=== PATIENT | female | born 1965 | race Caucasian/White ===

== ENCOUNTER 2016-04-09 11:51 | Emergency (ER) | payer OTHER ==
[~2016-04-09] VITALS: Ht 157.5 cm; Wt 59.0 kg
[~2016-04-09 11:51] MED LIST: ABILIFY10 MG PO; ADDERALL XR 2020 MG PO; ADDERALL20 MG PO; ADVAIR HFA120 INHALA IH; ALBUTEROL SULF8.5 GM IH; ALPRAZOLAM1 MG PO; AMBIEN5 MG PO; AMOXICILLIN500 MG PO; AMPHETAMINE SAL20 MG PO; ASACOL HD800 MG PO; ASACOL400 MG PO; ASPIR 8181 M1 PO; ASPIRIN81 M1 PO; ATARAX,VISTARIL50 MG PO; ATIVAN1 MG PO; ATORVASTATIN CA40 MG PO; AUGMENTIN875 MG PO; AZITHROMYCIN250 MG PO; Ambien PO; Aspirin Chewable PO; Aspirin Ec PO; Atarax,Vistaril PO; Atorvastatin Calcium PO; BENZONATATE100 MG PO; BICARSIM80 MG PO; BISACODYL5 MG PO; BUSPAR5 MG PO; CATAPRES0.1 MG PO; CELEXA40 MG PO; CEPHALEXIN500 MG PO; CLARITIN,ALAVAR10 MG PO; CLONAZEPAM0.5 MG PO; CLONAZEPAM1 MG PO; CLONAZEPAM2 MG PO; CLONIDINE HCL0.1 MG PO; CYMBALTA30 MG PO; CYMBALTA60 MG PO; DESYREL 150 MG150 MG PO; DESYREL100 MG PO; DESYREL300 MG PO; DIAZEPAM5 MG PO; DICYCLOMINE HCL20 MG PO; Desyrel PO; ESGIC 50-325-41 EAC1 PO; FEOSOL325 MG PO; FIORICET,ESG1 TABLET PO; FLONASE16 G1 BOTH NARES; Feosol PO; GABAPENTIN300 MG PO; GLUCOPHAGE500 MG PO; HYCODAN SYRUP480 ML PO; HYDROXYZINE HCL50 M1 PO; HYDROXYZINE PAM25 MG PO; HYDROXYZINE PAM50 MG PO; INDOCIN50 MG PO; K-DUR20 MEQ PO; K-Dur PO; KLONOPIN1 MG PO; KLONOPIN2 MG PO; KLOR-CON 1010 ME1 PO; KlonoPIN PO; LAMICTAL100 MG PO; LAMICTAL25 MG PO; LAMOTRIGINE100 MG PO; LEVAQUIN750 MG PO; LIPITOR40 MG PO; LISINOPRIL10 MG PO; LITE COAT ASPI325 M1 PO; LOPERAMIDE2 MG PO; LOPRESSOR100 MG PO; LOPRESSOR25 MG PO; LOPRESSOR50 MG PO; LOW DOSE ASPIRI81 M1 PO; LYRICA100 MG PO; LYRICA50 MG PO; METFORMIN HCL500 MG PO; METHADONE10 MG PO; METHADONE5 MG PO; METOPROLOL SUCC25 MG PO; METOPROLOL TART25 MG PO; METOPROLOL TART50 MG PO; MOBIC7.5 MG PO; Methadone PO; NEURONTIN300 MG PO; NEXIUM40 MG PO; NICODERM CQ1 EAC2 TD; NITROSTAT0.4 MG SL; NORCO 5/3251 TABLET PO; Neurontin PO; PANTOPRAZOLE SO40 MG PO; PERCOCET 10/1 TABLET PO; PERCOCET 5/31 TABLET PO; PERCOCET 7.51 TABLET PO; PHENAZOPYRIDIN100 MG PO; POTASSIUM CHLO10 ME4 PO; PRAVACHOL20 MG PO; PREDNISONE10 MG PO; PREDNISONE20 MG PO; PRINIVIL10 MG PO; PRISTIQ50 MG PO; PROAIR HFA8.5 GM IH; PROMETHAZINE HC25 M1 PO; PROTONIX40 MG PO; PROVENTIL HFA6.7 GM IH; PROZAC10 MG PO; Phenergan PO; Proventil,Ventolin H IH; QUETIAPINE FUM200 MG PO; QUETIAPINE FUM300 MG PO; QUETIAPINE FUMA50 MG PO; SEROQUEL200 MG PO; SEROQUEL300 MG PO; SEROQUEL400 MG PO; SEROQUEL50 MG PO; SERTRALINE HCL100 MG PO; SERTRALINE HCL25 MG PO; SINEQUAN100 MG PO; SPIRIVA RESPIMAT4 GM IH; SPIRIVA1 INHALATI; SPIRIVA1 INHALATI IH; TEGRETOL200 MG PO; TEMAZEPAM15 MG PO; TIZANIDINE HCL2 MG PO; TYLENOL WITH C1 EACH PO; ULTRAM50 MG PO; VALIUM5 MG PO; VENTOLIN HFA18 GM IH; VICODIN 5-3001 EACH PO; XANAX1 MG PO; ZANAFLEX2 M1 PO; ZESTRIL10 MG PO; ZOFRAN ODT4 MG PO; ZOFRAN4 MG PO; ZOLOFT100 MG PO; ZYPREXA10 MG PO
[2016-04-09] MEDS ORDERED: PERCOCET 10/1 TABLET PO (13:08)
[2016-04-09] MEDS ORDERED: LISINOPRIL10 MG PO (13:11)
[2016-04-09] MEDS ORDERED: LYRICA50 MG PO (13:11)
[2016-04-09] MEDS ORDERED: ZOLPIDEM TARTRA10 MG PO (13:12)
[2016-04-09] MEDS ORDERED: TESSALON PERLE100 MG PO (14:36)
[2016-04-09] MEDS ORDERED: MUCUS ER600 MG PO (14:36)
[2016-04-09] MEDS ORDERED: ROBITUSSIN NIG118 ML PO (14:36)
[2016-04-09 14:41] VITALS: BP 182/89
== END 2016-04-09 14:45 | disposition home or self-care (01) ==
LOC: EME 11:51
DX: J20.9 Acute bronchitis, unspecified (principal); G89.29 Other chronic pain; F17.200 Nicotine dependence, unspecified, uncomplicated; E11.9 Type 2 diabetes mellitus without complications; I10 Essential (primary) hypertension
CPT/HCPCS: 99281; 99284

== ENCOUNTER 2016-08-07 18:24 | Emergency (ER) | payer OTHER ==
[~2016-08-07] VITALS: Ht 157.5 cm; Wt 64.6 kg
[~2016-08-07 18:24] MED LIST changes: +MUCUS ER600 MG PO; +ROBITUSSIN NIG118 ML PO; +TESSALON PERLE100 MG PO; +ZOLPIDEM TARTRA10 MG PO
[2016-08-07 19:26] LABS: HEMATOCRIT 35.9 % (36.0-46.0); MCHC 31.8 G/DL (30.0-36.0); MCV 84.9 FL (83-99); MEAN PLAT.VOLUME 10.8 uM^3 (9.5-12.4); PLATELET COUNT 248 K/uL (156-360); RBC DIS.WIDTH-CV 14.6 % (11.8-14.6); RBC DIS.WIDTH-SD 44.6 % (39-53); RED BLOOD COUNT 4.23 M/uL (3.80-5.20); WHITE BLOOD COUNT 7.8 K/uL (4.1-10.2)
[2016-08-07 19:35] LABS: CHLORIDE 107 mEq/L (99-109); POTASSIUM 4.3 mEq/L (3.7-5.4); SODIUM 141 mEq/L (136-147)
[2016-08-07 19:37] LABS: GLUCOSE 74 mg/dL (70-99)
[2016-08-07 19:38] LABS: ANION GAP 8 MEQ/L (2-14)
[2016-08-07 19:39] LABS: TOTAL BILIRUBIN 0.1 mg/dL (0.0-1.0)
[2016-08-07 19:40] LABS: SERUM ETHYL ALCOHOL < 10 mg/dL
[2016-08-07 19:41] LABS: ALKALINE PHOSPHATASE 105 IU/L (3-129); GFR ESTIMATE (CALCULATED) > 59 mL/min/
[2016-08-07 19:42] LABS: UREA NITROGEN (BUN) 7 mg/dL (9-23)
[2016-08-07 19:57] LABS: ADD MIUA? NO; BILIRUBIN NEGATIVE; BLOOD NEGATIVE; COLOR YELLOW ((YELLOW)); GLUCOSE (STRIP) NEGATIVE; KETONES NEGATIVE; LEUKOCYTES NEGATIVE; NITRITE NEGATIVE; PROTEIN (STRIP) NEGATIVE; SPECIFIC GRAVITY 1.015 (1.000-1.030); UROBILINOGEN 0.2 MG/DL (0.2-1.0)
[2016-08-07 20:05] LABS: ADD MEDTOX COMMENT Y; AMPHETAMINE NEGATIVE (500 ng/mL); BARBITURATES NEGATIVE (200 ng/mL); BENZODIAZEPINES PRESUMPTIVE POSITIVE (150 ng/mL); COCAINE NEGATIVE (150 ng/mL); INTERNAL CONTROLS VALID? YES; METHADONE PRESUMPTIVE POSITIVE (200 ng/mL); METHAMPHETAMINE NEGATIVE (500 ng/mL); OPIATES (MORPHINE) NEGATIVE (100 ng/mL); OXYCODONE PRESUMPTIVE POSITIVE (100 ng/mL); PHENCYCLIDINE NEGATIVE (25 ng/mL); PROPOXYPHENE NEGATIVE (300 ng/mL); THC CANNABINOIDS NEGATIVE (50 ng/mL); TRICYCLIC ANTIDEPRESSANTS PRESUMPTIVE POSITIVE (300 ng/mL)
[2016-08-07 21:14] LABS: BENZODIAZEPINES, URINE SCREEN POSITIVE (200 ng/mL)
[2016-08-07] MEDS ORDERED: NARCAN4 MG NS (21:25)
[2016-08-07 21:36] VITALS: BP 115/66
== END 2016-08-07 21:37 | disposition home or self-care (01) ==
LOC: EME 18:24
PROVIDERS: Emergency Medicine
DX: R55 Syncope and collapse (principal); R42 Dizziness and giddiness; T40.3X5A Adverse effect of methadone, initial encounter; T40.2X5A Adverse effect of other opioids, initial encounter; T43.595A Adverse effect of other antipsychotics and neuroleptics, initial encounter; E11.9 Type 2 diabetes mellitus without complications; Z79.84 Long term (current) use of oral hypoglycemic drugs; Z86.73 Personal history of transient ischemic attack (TIA), and cerebral infarction without residual deficits; F17.200 Nicotine dependence, unspecified, uncomplicated
CPT/HCPCS: 80053; 81003; 84999; 85027; 93005; 99281; 99284; G0480; J2310

== ENCOUNTER → 2016-10-11 | Emergency (ER) | payer OTHER ==
[~2016-10-11] VITALS: Ht 157.5 cm; Wt 68.5 kg
[~2016-10-11] MED LIST changes: +NARCAN4 MG NS
[2016-10-11 02:02] LABS: HEMATOCRIT 35.8 % (36.0-46.0); MCH 27.6 PG (29.0-34.0); MCV 83.8 FL (83-99); MEAN PLAT.VOLUME 11.3 uM^3 (9.5-12.4); PLATELET COUNT 282 K/uL (156-360); RBC DIS.WIDTH-SD 42.5 % (39-53); RED BLOOD COUNT 4.27 M/uL (3.80-5.20); WHITE BLOOD COUNT 7.1 K/uL (4.1-10.2)
[2016-10-11 02:25] LABS: CHLORIDE 97 mEq/L (99-109); POTASSIUM 3.7 mEq/L (3.7-5.4); SODIUM 134 mEq/L (136-147)
[2016-10-11 02:28] LABS: ANION GAP 12 MEQ/L (2-14)
[2016-10-11 02:30] LABS: GFR ESTIMATE (CALCULATED) > 59 mL/min/
[2016-10-11 02:31] LABS: UREA NITROGEN (BUN) 6 mg/dL (9-23)
[2016-10-11 02:48] LABS: GLUCOSE 86 mg/dL (70-99)
[2016-10-11 03:52] VITALS: BP 144/87
== END | disposition home or self-care (01) ==
LOC: EME 00:43
PROVIDERS: Physician Assistant
DX: K11.5 Sialolithiasis (principal); K11.20 Sialoadenitis, unspecified; F17.200 Nicotine dependence, unspecified, uncomplicated; E11.9 Type 2 diabetes mellitus without complications; F41.9 Anxiety disorder, unspecified; Z86.73 Personal history of transient ischemic attack (TIA), and cerebral infarction without residual deficits; Z88.5 Allergy status to narcotic agent; Z88.2 Allergy status to sulfonamides; Z79.84 Long term (current) use of oral hypoglycemic drugs
CPT/HCPCS: 70491; 80048; 85027; 99281; 99284; J7030

== ENCOUNTER 2017-02-16 10:13 | Emergency (ER) | payer OTHER ==
[~2017-02-16] VITALS: Ht 157.5 cm; Wt 62.0 kg
[2017-02-16 11:16] LABS: HEMATOCRIT 38.1 % (36.0-46.0); MCH 26.7 PG (29.0-34.0); MCHC 33.3 G/DL (30.0-36.0); MCV 80.2 FL (83-99); MEAN PLAT.VOLUME 9.4 uM^3 (9.5-12.4); PLATELET COUNT 330 K/uL (156-360); RBC DIS.WIDTH-CV 14.4 % (11.8-14.6); RBC DIS.WIDTH-SD 41.8 % (39-53); RED BLOOD COUNT 4.75 M/uL (3.80-5.20); WHITE BLOOD COUNT 8.9 K/uL (4.1-10.2)
[2017-02-16 11:27] LABS: CHLORIDE 105 mEq/L (99-109); POTASSIUM 3.6 mEq/L (3.7-5.4); SODIUM 136 mEq/L (136-147)
[2017-02-16 11:28] LABS: GLUCOSE 107 mg/dL (70-99)
[2017-02-16 11:30] LABS: ANION GAP 12 MEQ/L (2-14)
[2017-02-16 11:32] LABS: GFR ESTIMATE (CALCULATED) > 59 mL/min/
[2017-02-16 11:33] LABS: UREA NITROGEN (BUN) 9 mg/dL (9-23)
[2017-02-16] MEDS ORDERED: MECLIZINE HCL25 MG PO (13:38)
[2017-02-16 13:50] VITALS: BP 175/116
== END 2017-02-16 13:53 | disposition home or self-care (01) ==
LOC: EME 10:13
DX: R42 Dizziness and giddiness (principal); R29.6 Repeated falls; E11.9 Type 2 diabetes mellitus without complications; R56.9 Unspecified convulsions; F41.9 Anxiety disorder, unspecified; Z86.73 Personal history of transient ischemic attack (TIA), and cerebral infarction without residual deficits; Z79.84 Long term (current) use of oral hypoglycemic drugs; Z95.5 Presence of coronary angioplasty implant and graft; F17.200 Nicotine dependence, unspecified, uncomplicated; Z88.2 Allergy status to sulfonamides; Z88.8 Allergy status to other drugs, medicaments and biological substances
CPT/HCPCS: 70450; 71020; 80048; 85027; 93005; 99281; 99283

== ENCOUNTER 2017-04-03 21:10 | Observation (INO) | payer OTHER ==
[~2017-04-03] VITALS: Ht 152.4 cm; Wt 62.5 kg
[~2017-04-03 21:10] MED LIST changes: +MECLIZINE HCL25 MG PO
[2017-04-04 00:13] LABS: HEMATOCRIT 36.1 % (36.0-46.0); HEMOGLOBIN 11.6 G/DL (11.9-15.5); MCHC 32.1 G/DL (30.0-36.0); PLATELET COUNT 393 K/uL (156-360); RBC DIS.WIDTH-CV 15.8 % (11.8-14.6); RBC DIS.WIDTH-SD 47.6 % (39-53); WHITE BLOOD COUNT 10.5 K/uL (4.1-10.2)
[2017-04-04 00:25] LABS: CHLORIDE 99 MEQ/L (99-109); POTASSIUM 4.2 MEQ/L (3.7-5.4); SODIUM 132 MEQ/L (136-147)
[2017-04-04 00:30] LABS: CREATININE 1.5 MG/DL (0.6-1.3); GFR ESTIMATE (CALCULATED) 39 mL/min/; GLUCOSE 116 mg/dL (70-99); UREA NITROGEN (BUN) 16 mg/dL (9-23)
[2017-04-04 02:08] LABS: APPEARANCE SL.HAZY ((CLEAR)); BILIRUBIN NEGATIVE; BLOOD MODERATE; COLOR AMBER ((YELLOW)); GLUCOSE (STRIP) NEGATIVE; KETONES NEGATIVE; LEUKOCYTES NEGATIVE; NITRITE NEGATIVE; PROTEIN (STRIP) NEGATIVE; SPECIFIC GRAVITY 1.021 (1.000-1.030); UROBILINOGEN 0.2 MG/DL (0.2-1.0)
[2017-04-04 02:12] LABS: BACTERIA 1+ /HPF; EPITHELIAL CELLS RARE /HPF; HYALINE CASTS 20-30 /LPF; MUCUS TRACE /LPF; RED BLOOD CELLS 0-5 /HPF (0-5); UCUL ADDED? NO; WHITE BLOOD CELLS 0-5 /HPF (0-5)
[2017-04-04 02:18] LABS: AMPHETAMINE NEGATIVE (500 ng/mL); BARBITURATES PRESUMPTIVE POSITIVE (200 ng/mL); BENZODIAZEPINES PRESUMPTIVE POSITIVE (150 ng/mL); COCAINE NEGATIVE (150 ng/mL); METHADONE PRESUMPTIVE POSITIVE (200 ng/mL); METHAMPHETAMINE NEGATIVE (500 ng/mL); OPIATES (MORPHINE) NEGATIVE (100 ng/mL); PHENCYCLIDINE NEGATIVE (25 ng/mL); THC CANNABINOIDS NEGATIVE (50 ng/mL); TRICYCLIC ANTIDEPRESSANTS PRESUMPTIVE POSITIVE (300 ng/mL)
[2017-04-04 02:19] LABS: BUPRENORPHINE NEGATIVE (10 ng/mL); OXYCODONE NEGATIVE (100 ng/mL); PROPOXYPHENE NEGATIVE (300 ng/mL)
[2017-04-04 02:48] LABS: BENZODIAZEPINES, URINE SCREEN POSITIVE (200 ng/mL)
[2017-04-04 10:52] VITALS: BP 164/75
[2017-04-04 15:56] VITALS: BP 164/79
[2017-04-04 19:57] VITALS: BP 179/80
[2017-04-05] VITALS (7 sets, daily range): BP systolic 150–196; BP diastolic 70–88
[2017-04-05] MEDS ORDERED: METHADONE 22 MG/1 ML PO (13:08)
[2017-04-06 03:45] VITALS: BP 126/64
[2017-04-06 03:53] VITALS: BP 139/63
[2017-04-06 06:02] LABS: BASOPHIL (%) 0.8 % (0-1); BASOPHIL COUNT 0.1 K/uL (0-0.1); EOSINOPHIL COUNT 0.2 K/uL (0-0.3); HEMATOCRIT 31.5 % (36.0-46.0); IMMATURE GRANULOCYTE (%) 0.3 % (0.0-0.7); LYMPHOCYTE (%) 40.5 % (15-42); LYMPHOCYTE COUNT 3.2 K/uL (1.0-2.8); MCH 26.5 PG (29.0-34.0); MCHC 31.7 G/DL (30.0-36.0); MCV 83.3 FL (83-99); MONOCYTE (%) 6.9 % (3-12); MONOCYTE COUNT 0.6 K/uL (0-0.8); NEUTROPHIL (%) 49.5 % (45-76); PLATELET COUNT 308 K/uL (156-360); RBC DIS.WIDTH-CV 15.8 % (11.8-14.6); RBC DIS.WIDTH-SD 47.8 % (39-53); RED BLOOD COUNT 3.78 M/uL (3.80-5.20)
[2017-04-06 07:44] LABS: ALKALINE PHOSPHATASE 99 IU/L (3-129); ALT (GPT) 9 IU/L (3-49); AST (GOT) 12 IU/L (2-34); CHLORIDE 107 MEQ/L (99-109); GLUCOSE 117 mg/dL (70-99); POTASSIUM 3.5 MEQ/L (3.7-5.4); TOTAL BILIRUBIN 0.2 MG/DL (0.0-1.0); TOTAL PROTEIN 5.5 G/DL (6.4-8.3); UREA NITROGEN (BUN) 5 mg/dL (9-23)
[2017-04-06 07:45] LABS: CREATININE 0.6 MG/DL (0.6-1.3); GFR ESTIMATE (CALCULATED) > 59 mL/min/; SODIUM 140 MEQ/L (136-147)
[2017-04-06 07:54] VITALS: BP 189/83
[2017-04-06 09:57] VITALS: BP 137/65
[2017-04-06] MEDS ORDERED: CLONIDINE HCL0.1 MG PO (10:51)
[2017-04-06] MEDS ORDERED: LOPRESSOR25 MG PO (10:52)
[2017-04-06] MEDS ORDERED: NICOTINE PATCH1 EAC2 TD (10:55)
[2017-04-06 11:46] VITALS: BP 183/83
== END 2017-04-06 13:31 | disposition home or self-care (01) ==
LOC: EME 21:10 → EDOF 04-04 02:22 → 5WEST 04-04 02:22 → ENRESERV 04-04 02:24 → 5WEST 04-04 10:37
PROVIDERS: Emergency Medicine; Hospitalist
DX: I95.2 Hypotension due to drugs (principal); T42.4X1A Poisoning by benzodiazepines, accidental (unintentional), initial encounter; T40.601A Poisoning by unspecified narcotics, accidental (unintentional), initial encounter; N28.9 Disorder of kidney and ureter, unspecified; E86.0 Dehydration; I10 Essential (primary) hypertension; F43.23 Adjustment disorder with mixed anxiety and depressed mood; F13.10 Sedative, hypnotic or anxiolytic abuse, uncomplicated; E87.1 Hypo-osmolality and hyponatremia; G89.29 Other chronic pain; J44.9 Chronic obstructive pulmonary disease, unspecified; K50.90 Crohn's disease, unspecified, without complications; E11.9 Type 2 diabetes mellitus without complications; F17.200 Nicotine dependence, unspecified, uncomplicated; Z79.84 Long term (current) use of oral hypoglycemic drugs; Z79.82 Long term (current) use of aspirin; J32.9 Chronic sinusitis, unspecified; W10.9XXA Fall (on) (from) unspecified stairs and steps, initial encounter; R42 Dizziness and giddiness; M25.562 Pain in left knee; S60.221A Contusion of right hand, initial encounter; Z86.73 Personal history of transient ischemic attack (TIA), and cerebral infarction without residual deficits; Z87.19 Personal history of other diseases of the digestive system; Z95.5 Presence of coronary angioplasty implant and graft; Z88.2 Allergy status to sulfonamides; Z88.5 Allergy status to narcotic agent; Z88.8 Allergy status to other drugs, medicaments and biological substances
CPT/HCPCS: 70450; 73130; 73564; 80048; 80053; 81003; 82948; 83605; 84999; 85025; 85027; 87040; 93005; 94640; 94640 76; 99202; 99281; 99285; G0378; J1885; J2310; J2405; J7030

== ENCOUNTER 2017-06-23 17:38 | Emergency (ER) | payer OTHER ==
[~2017-06-23] VITALS: Ht 157.5 cm; Wt 63.6 kg
[~2017-06-23 17:38] MED LIST changes: +METHADONE 22 MG/1 ML PO; +NICOTINE PATCH1 EAC2 TD
[2017-06-23 18:54] LABS: HEMATOCRIT 34.8 % (36.0-46.0); HEMOGLOBIN 11.4 G/DL (11.9-15.5); MCHC 32.8 G/DL (30.0-36.0); MCV 85.5 FL (83-99); PLATELET COUNT 220 K/uL (156-360); RBC DIS.WIDTH-CV 14.9 % (11.8-14.6); RBC DIS.WIDTH-SD 46.6 % (39-53); RED BLOOD COUNT 4.07 M/uL (3.80-5.20); WHITE BLOOD COUNT 8.4 K/uL (4.1-10.2)
[2017-06-23 19:04] LABS: CHLORIDE 106 mEq/L (99-109); POTASSIUM 3.7 mEq/L (3.7-5.4); SODIUM 141 mEq/L (136-147)
[2017-06-23 19:06] LABS: GLUCOSE 82 mg/dL (70-99)
[2017-06-23 19:10] LABS: CREATININE 0.7 mg/dL (0.6-1.3); GFR ESTIMATE (CALCULATED) > 59 mL/min/
[2017-06-23 19:11] LABS: UREA NITROGEN (BUN) 6 mg/dL (9-23)
[2017-06-23 19:18] LABS: TROP-I INTERPRETATION NEGATIVE; TROPONIN-I < 0.01 ng/mL (0.0-0.30)
[2017-06-23 21:03] LABS: APPEARANCE CLEAR ((CLEAR)); BILIRUBIN NEGATIVE; BLOOD NEGATIVE; COLOR YELLOW ((YELLOW)); GLUCOSE (STRIP) NEGATIVE; KETONES NEGATIVE; LEUKOCYTES SMALL; NITRITE NEGATIVE; PROTEIN (STRIP) NEGATIVE; SPECIFIC GRAVITY 1.005 (1.000-1.030); UROBILINOGEN 0.2 MG/DL (0.2-1.0)
[2017-06-23 21:10] LABS: THC CANNABINOIDS NEGATIVE (50 ng/mL)
[2017-06-23 21:11] LABS: AMPHETAMINE NEGATIVE (500 ng/mL); BARBITURATES PRESUMPTIVE POSITIVE (200 ng/mL); BENZODIAZEPINES PRESUMPTIVE POSITIVE (150 ng/mL); BUPRENORPHINE NEGATIVE (10 ng/mL); COCAINE NEGATIVE (150 ng/mL); METHADONE PRESUMPTIVE POSITIVE (200 ng/mL); METHAMPHETAMINE NEGATIVE (500 ng/mL); OPIATES (MORPHINE) PRESUMPTIVE POSITIVE (100 ng/mL); OXYCODONE NEGATIVE (100 ng/mL); PHENCYCLIDINE NEGATIVE (25 ng/mL); PROPOXYPHENE NEGATIVE (300 ng/mL); TRICYCLIC ANTIDEPRESSANTS PRESUMPTIVE POSITIVE (300 ng/mL)
[2017-06-23 21:13] LABS: BACTERIA RARE /HPF; EPITHELIAL CELLS 1+ /HPF; MUCUS NONE SEEN /LPF; RED BLOOD CELLS 0-5 /HPF (0-5); UCUL ADDED? NO; WHITE BLOOD CELLS 0-5 /HPF (0-5)
[2017-06-23 21:39] LABS: BENZODIAZEPINES, URINE SCREEN Negative (200 ng/mL)
[2017-06-23 22:34] VITALS: BP 162/82
== END 2017-06-23 23:29 | disposition left against medical advice (07) ==
LOC: EME 17:38
PROVIDERS: Physician Assistant
DX: R07.9 Chest pain, unspecified (principal); T50.901A Poisoning by unspecified drugs, medicaments and biological substances, accidental (unintentional), initial encounter; R00.1 Bradycardia, unspecified; R45.1 Restlessness and agitation; R91.1 Solitary pulmonary nodule; I25.2 Old myocardial infarction; Z95.5 Presence of coronary angioplasty implant and graft; Z86.73 Personal history of transient ischemic attack (TIA), and cerebral infarction without residual deficits; Z79.82 Long term (current) use of aspirin; E11.9 Type 2 diabetes mellitus without complications; Z79.84 Long term (current) use of oral hypoglycemic drugs; Z90.49 Acquired absence of other specified parts of digestive tract; F17.200 Nicotine dependence, unspecified, uncomplicated; Z53.20 Procedure and treatment not carried out because of patient's decision for unspecified reasons
CPT/HCPCS: 71046; 80048; 81003; 84484; 84999; 85027; 93005; J2310

== ENCOUNTER 2017-09-18 17:08 | Observation (INO) | payer OTHER ==
[~2017-09-18] VITALS: Ht 154.9 cm; Wt 63.2 kg
[~2017-09-18 17:08] MED LIST changes: +KLONOPIN0.5 M1 PO; +PRINIVIL5 MG PO; -PROZAC10 MG PO; +PROZAC40 MG PO
[2017-09-18 17:59] LABS: HEMATOCRIT 31.2 % (36.0-46.0); HEMOGLOBIN 10.7 G/DL (11.9-15.5); MCH 28.8 PG (29.0-34.0); MCHC 34.3 G/DL (30.0-36.0); MCV 83.9 FL (83-99); PLATELET COUNT 341 K/uL (156-360); RBC DIS.WIDTH-CV 13.2 % (11.8-14.6); RBC DIS.WIDTH-SD 41.1 % (39-53); RED BLOOD COUNT 3.72 M/uL (3.80-5.20); WHITE BLOOD COUNT 10.1 K/uL (4.1-10.2)
[2017-09-18 18:08] LABS: ALBUMIN 3.7 g/dL (3.2-4.8); CHLORIDE 105 mEq/L (99-109); POTASSIUM 3.6 mEq/L (3.7-5.4); SODIUM 137 mEq/L (136-147)
[2017-09-18 18:10] LABS: GLUCOSE 113 mg/dL (70-99); TOTAL PROTEIN 6.1 g/dL (6.4-8.3)
[2017-09-18 18:12] LABS: TOTAL BILIRUBIN 0.1 mg/dL (0.0-1.0)
[2017-09-18 18:14] LABS: ALKALINE PHOSPHATASE 111 IU/L (3-129); CREATININE 0.8 mg/dL (0.6-1.3); GFR ESTIMATE (CALCULATED) > 59 mL/min/
[2017-09-18 18:15] LABS: UREA NITROGEN (BUN) 4 mg/dL (9-23)
[2017-09-18 18:16] LABS: AST (GOT) 17 IU/L (2-34)
[2017-09-18 18:17] LABS: ALT (GPT) 12 IU/L (3-49); LIPASE 24 U/L (1.0-51.0)
[2017-09-18 18:20] LABS: TROP-I INTERPRETATION NEGATIVE; TROPONIN-I < 0.01 ng/mL (0.0-0.30)
[2017-09-18 18:23] LABS: QUANTITATIVE HCG < 4.0 MIU/ML
[2017-09-18 19:28] LABS: APPEARANCE SL.HAZY ((CLEAR)); BILIRUBIN NEGATIVE; BLOOD SMALL; COLOR YELLOW ((YELLOW)); GLUCOSE (STRIP) NEGATIVE; KETONES NEGATIVE; LEUKOCYTES LARGE; NITRITE NEGATIVE; PROTEIN (STRIP) NEGATIVE; SPECIFIC GRAVITY 1.008 (1.000-1.030); UROBILINOGEN 0.2 MG/DL (0.2-1.0)
[2017-09-18 19:33] LABS: BACTERIA 1+ /HPF; EPITHELIAL CELLS 2+ /HPF; MUCUS TRACE /LPF; RED BLOOD CELLS 0-5 /HPF (0-5); UCUL ADDED? YES; WHITE BLOOD CELLS 40-50 /HPF (0-5)
[2017-09-18 19:42] LABS: AMPHETAMINE NEGATIVE (500 ng/mL); BARBITURATES NEGATIVE (200 ng/mL); BENZODIAZEPINES NEGATIVE (150 ng/mL); BUPRENORPHINE NEGATIVE (10 ng/mL); COCAINE NEGATIVE (150 ng/mL); METHADONE PRESUMPTIVE POSITIVE (200 ng/mL); METHAMPHETAMINE NEGATIVE (500 ng/mL); OPIATES (MORPHINE) NEGATIVE (100 ng/mL); OXYCODONE NEGATIVE (100 ng/mL); PHENCYCLIDINE NEGATIVE (25 ng/mL); PROPOXYPHENE NEGATIVE (300 ng/mL); THC CANNABINOIDS NEGATIVE (50 ng/mL); TRICYCLIC ANTIDEPRESSANTS PRESUMPTIVE POSITIVE (300 ng/mL)
[2017-09-18] MEDS ORDERED: NICODERM CQ1 EAC2 TD (20:46)
[2017-09-18] MEDS ORDERED: LOPRESSOR25 MG PO (20:47)
[2017-09-18] MEDS ORDERED: CATAPRES0.1 MG PO (20:47)
[2017-09-18] MEDS ORDERED: LAMICTAL150 M1 PO (20:50)
[2017-09-18] MEDS ORDERED: MECLIZINE HCL25 MG PO (20:51)
[2017-09-18] MEDS ORDERED: SYMBICORT60 INHALAT IH (20:52)
[2017-09-18] MEDS ORDERED: OMEPRAZOLE40 M1 PO (20:52)
[2017-09-18] MEDS ORDERED: AVENTYL,PAMELOR10 MG PO (20:53)
[2017-09-18] MEDS ORDERED: MINIPRESS1 MG PO (20:53)
[2017-09-18] MEDS ORDERED: DESYREL 150 MG150 MG PO (20:53)
[2017-09-18] MEDS ORDERED: ATARAX10 MG PO (20:53)
[2017-09-18] MEDS ORDERED: VENTOLIN HFA18 GM IH (20:53)
[2017-09-18] MEDS ORDERED: FLONASE16 G1 BOTH NARES (20:54)
[2017-09-18] MEDS ORDERED: BUTALB-APAP-CA1 EACH PO (20:54)
[2017-09-18] MEDS ORDERED: LEXAPRO10 MG PO (20:54)
[2017-09-18] MEDS ORDERED: TIZANIDINE HCL2 MG PO (20:54)
[2017-09-19 00:40] VITALS: BP 169/77
[2017-09-19 00:54] LABS: HDL CHOLESTEROL 44 MG/DL (Desirable>=50); LDL CHOLESTEROL 66 mg/dL (Desirable<100); NON-HDL CHOLESTEROL 84 mg/dL (Desirable<160); TOTAL CHOLESTEROL 128 mg/dL (Desirable<200); TRIGLYCERIDES 89 MG/DL (Normal: <150)
[2017-09-19 04:32] VITALS: BP 141/65
[2017-09-19 05:24] LABS: HEMOGLOBIN 10.4 G/DL (11.9-15.5); MCHC 33.5 G/DL (30.0-36.0); MCV 83.6 FL (83-99); PLATELET COUNT 328 K/uL (156-360); RBC DIS.WIDTH-CV 13.5 % (11.8-14.6); RBC DIS.WIDTH-SD 41.5 % (39-53); RED BLOOD COUNT 3.71 M/uL (3.80-5.20); WHITE BLOOD COUNT 9.2 K/uL (4.1-10.2)
[2017-09-19 08:10] VITALS: BP 124/60
[2017-09-19 09:16] LABS: TROP-I INTERPRETATION NEGATIVE; TROPONIN-I < 0.01 ng/mL (0.0-0.30)
[2017-09-19 09:47] LABS: HEMOGLOBIN A1c (GLYCOHEMOGLOB) 5.9 % (Below 5.7)
[2017-09-19 11:50] VITALS: BP 153/73
[2017-09-19 14:52] LABS: TROP-I INTERPRETATION NEGATIVE; TROPONIN-I < 0.01 ng/mL (0.0-0.30)
== END 2017-09-19 15:25 | disposition home or self-care (01) ==
LOC: EME 17:08 → EDOF 22:44 → 4SOUTH 22:44 → ENRESERV 22:49 → 4SOUTH 23:47
PROVIDERS: Hospitalist; Nurse Practitioner Adult Health; Nurse Practitioner Family
DX: R42 Dizziness and giddiness (principal); R07.89 Other chest pain; F40.240 Claustrophobia; F41.9 Anxiety disorder, unspecified; J44.9 Chronic obstructive pulmonary disease, unspecified; F31.9 Bipolar disorder, unspecified; G89.29 Other chronic pain; E11.9 Type 2 diabetes mellitus without complications; F17.200 Nicotine dependence, unspecified, uncomplicated; I70.8 Atherosclerosis of other arteries; E87.6 Hypokalemia; Z79.891 Long term (current) use of opiate analgesic; I25.10 Atherosclerotic heart disease of native coronary artery without angina pectoris; Z79.82 Long term (current) use of aspirin; Z79.84 Long term (current) use of oral hypoglycemic drugs; I10 Essential (primary) hypertension; K50.90 Crohn's disease, unspecified, without complications; G40.909 Epilepsy, unspecified, not intractable, without status epilepticus; Z88.2 Allergy status to sulfonamides; Z88.5 Allergy status to narcotic agent; Z88.8 Allergy status to other drugs, medicaments and biological substances; Z82.49 Family history of ischemic heart disease and other diseases of the circulatory system; Z83.3 Family history of diabetes mellitus; Z95.5 Presence of coronary angioplasty implant and graft
CPT/HCPCS: 70450; 71046; 71275; 80053; 80061; 81003; 83036; 83690; 84484; 84702; 85027; 87086 GA; 93005; 94640; 94799; 99281; 99285; G0378; J0696; J1650; J2765; Q0177

== ENCOUNTER 2017-09-22 12:32 | Observation (INO) | payer OTHER ==
[~2017-09-22] VITALS: Ht 154.9 cm; Wt 71.9 kg
[~2017-09-22 12:32] MED LIST changes: +ATARAX10 MG PO; +AVENTYL,PAMELOR10 MG PO; +BUTALB-APAP-CA1 EACH PO; +LAMICTAL150 M1 PO; +LEXAPRO10 MG PO; +MINIPRESS1 MG PO; +OMEPRAZOLE40 M1 PO; +SYMBICORT60 INHALAT IH
[2017-09-22 14:07] LABS: APPEARANCE CLEAR ((CLEAR)); BILIRUBIN NEGATIVE; BLOOD NEGATIVE; COLOR STRAW ((YELLOW)); GLUCOSE (STRIP) NEGATIVE; KETONES NEGATIVE; LEUKOCYTES SMALL; NITRITE NEGATIVE; PROTEIN (STRIP) NEGATIVE; SPECIFIC GRAVITY 1.005 (1.000-1.030); UROBILINOGEN 0.2 MG/DL (0.2-1.0)
[2017-09-22 14:13] LABS: BACTERIA NONE SEEN /HPF; EPITHELIAL CELLS RARE /HPF; MUCUS NONE SEEN /LPF; RED BLOOD CELLS 0-5 /HPF (0-5)
[2017-09-22 14:16] LABS: HEMATOCRIT 32.1 % (36.0-46.0); MCH 28.9 PG (29.0-34.0); MCHC 34.3 G/DL (30.0-36.0); MCV 84.3 FL (83-99); PLATELET COUNT 273 K/uL (156-360); RBC DIS.WIDTH-CV 13.3 % (11.8-14.6); RBC DIS.WIDTH-SD 41.2 % (39-53); RED BLOOD COUNT 3.81 M/uL (3.80-5.20)
[2017-09-22 14:23] LABS: AMPHETAMINE NEGATIVE (500 ng/mL); BENZODIAZEPINES NEGATIVE (150 ng/mL); COCAINE PRESUMPTIVE POSITIVE (150 ng/mL); METHAMPHETAMINE NEGATIVE (500 ng/mL); OPIATES (MORPHINE) NEGATIVE (100 ng/mL); PHENCYCLIDINE NEGATIVE (25 ng/mL); THC CANNABINOIDS NEGATIVE (50 ng/mL)
[2017-09-22 14:24] LABS: BARBITURATES PRESUMPTIVE POSITIVE (200 ng/mL); BUPRENORPHINE NEGATIVE (10 ng/mL); METHADONE PRESUMPTIVE POSITIVE (200 ng/mL); OXYCODONE NEGATIVE (100 ng/mL); PROPOXYPHENE NEGATIVE (300 ng/mL); TRICYCLIC ANTIDEPRESSANTS PRESUMPTIVE POSITIVE (300 ng/mL)
[2017-09-22 14:48] LABS: TROP-I INTERPRETATION NEGATIVE; TROPONIN-I < 0.01 ng/mL (0.0-0.30)
[2017-09-22 14:55] LABS: ALBUMIN 3.9 G/DL (3.2-4.8); CHLORIDE 101 MEQ/L (99-109); POTASSIUM 4.3 MEQ/L (3.7-5.4); SODIUM 136 MEQ/L (136-147); TOTAL BILIRUBIN 0.4 MG/DL (0.0-1.0)
[2017-09-22 15:03] LABS: ACETAMINOPHEN (TYLENOL) < 10 MCG/ML (10-30); ALKALINE PHOSPHATASE 103 IU/L (3-129); ALT (GPT) 14 IU/L (3-49); AST (GOT) 21 IU/L (2-34); CREATININE 0.7 MG/DL (0.6-1.3); GFR ESTIMATE (CALCULATED) > 59 mL/min/; SALICYLATE < 3.0 MG/DL (15-30); SERUM ETHYL ALCOHOL < 10 mg/dL; TOTAL PROTEIN 6.3 G/DL (6.4-8.3); UREA NITROGEN (BUN) 5 mg/dL (9-23)
[2017-09-22 17:39] LABS: ERTH.SED.RATE 23 MM/HR (0-30)
[2017-09-22 17:59] VITALS: BP 177/75
[2017-09-22 20:13] VITALS: BP 165/76
[2017-09-23 00:10] VITALS: BP 138/66
[2017-09-23 04:13] VITALS: BP 152/68
[2017-09-23 05:54] LABS: HEMATOCRIT 30.6 % (36.0-46.0); MCH 27.9 PG (29.0-34.0); MCHC 32.7 G/DL (30.0-36.0); MCV 85.2 FL (83-99); PLATELET COUNT 265 K/uL (156-360); RBC DIS.WIDTH-CV 13.3 % (11.8-14.6); RBC DIS.WIDTH-SD 41.9 % (39-53); RED BLOOD COUNT 3.59 M/uL (3.80-5.20); WHITE BLOOD COUNT 6.5 K/uL (4.1-10.2)
[2017-09-23 06:19] LABS: CHLORIDE 108 MEQ/L (99-109); CREATININE 0.5 MG/DL (0.6-1.3); GFR ESTIMATE (CALCULATED) > 59 mL/min/; GLUCOSE 85 mg/dL (70-99); POTASSIUM 3.7 MEQ/L (3.7-5.4); SODIUM 142 MEQ/L (136-147); UREA NITROGEN (BUN) 3 mg/dL (9-23)
[2017-09-23 08:00] VITALS: BP 171/78
[2017-09-23 11:29] VITALS: BP 193/93
== END 2017-09-23 12:37 | disposition left against medical advice (07) ==
LOC: EME 12:32 → EDOF 16:39 → 4SOUTH 16:39 → EDOF 16:39 → ENRESERV 16:43 → 4SOUTH 17:41
PROVIDERS: Emergency Medicine; Family Medicine
DX: G93.40 Encephalopathy, unspecified (principal); F19.10 Other psychoactive substance abuse, uncomplicated; E72.20 Disorder of urea cycle metabolism, unspecified; I16.0 Hypertensive urgency; I10 Essential (primary) hypertension; F14.10 Cocaine abuse, uncomplicated; F43.23 Adjustment disorder with mixed anxiety and depressed mood; F31.9 Bipolar disorder, unspecified; K50.90 Crohn's disease, unspecified, without complications; E11.9 Type 2 diabetes mellitus without complications; J43.9 Emphysema, unspecified; R42 Dizziness and giddiness; R29.6 Repeated falls; G89.29 Other chronic pain; F17.200 Nicotine dependence, unspecified, uncomplicated; Z79.891 Long term (current) use of opiate analgesic; Z79.84 Long term (current) use of oral hypoglycemic drugs; Z79.82 Long term (current) use of aspirin; Z79.899 Other long term (current) drug therapy; Z88.2 Allergy status to sulfonamides; Z88.5 Allergy status to narcotic agent; Z88.8 Allergy status to other drugs, medicaments and biological substances
CPT/HCPCS: 70450; 71045; 72125; 80048; 80053; 81003; 82140; 84484; 84999; 85027; 85651; 93005; 99281; 99285; G0378; G0480; J1650; J7030